=== PATIENT | female | born 1985 | race Caucasian/White ===

== ENCOUNTER 2019-09-27 15:24 | Emergency (ER) | payer BC ==
[~2019-09-27] VITALS: Ht 162.6 cm; Wt 56.7 kg
[2019-09-27 15:39] VITALS: BP 135/95
== END 2019-09-27 17:46 | disposition home or self-care (01) ==
LOC: ER 15:30
DX: R13.10 Dysphagia, unspecified (principal)
CPT/HCPCS: 70490-TC; 71250-TC